=== PATIENT | male | born 1950 | race Caucasian/White ===

== ENCOUNTER → 2017-11-08 | Outpatient (CLI) | payer OTHER ==
--- NOTE | 2017-11-08 11:23 | KCIC ---
MRI of the thoracic spine without contrast 11/08/2017 CLINICAL HISTORY: Mid back pain which radiates down the right arm worsening over last 6 weeks. TECHNIQUE: Unenhanced T1-weighted, T2-weighted and inversion recovery sagittal and T1-weighted and T2-weighted axial images of the thoracic spine were obtained. T2-weighted sagittal images of the cervical, thoracic and lumbar spine were obtained for localization purposes. FINDINGS: Very mild S-shaped curvature of the thoracolumbar spine is seen. Degenerative signal changes are seen involving all of the disks of the thoracic spine. Degenerative signal changes are seen within the marrow surrounding these discs. No area of abnormal signal intensity is seen involving the thoracic spinal cord. At the T1-2 disc space there is a minimal generalized disc bulge. Superimposed on this disc bulge is a right paracentral/lateral focal disc protrusion. This measures 2.5 mm in AP diameter. Degenerative changes are seen involving the facet joints bilaterally. These findings do not result in significant central spinal canal stenosis. Mild right neural foraminal stenosis is seen. The left neural foramen is patent. At the T2-3 disc space there is a minimal generalized disc bulge. Superimposed on this disc bulge is a right paracentral/lateral disc osteophyte complex. This measures 4 mm in AP diameter. Degenerative changes are seen involving the facet joints bilaterally. These findings do not result in significant central spinal canal stenosis. Mild right neural foraminal stenosis is seen. The left neural foramen is patent. At the T3-4, and T4-5 disc spaces there are minimal to mild generalized disc bulges. Degenerative changes are seen involving the facet joints bilaterally. These findings do not result in significant central spinal canal or neural foraminal stenosis. At the T5-6 and T6-7 disc spaces there are mild generalized disc bulges. Superimposed on this disc bulge is a focal central disc protrusions which measures 3 mm in AP diameter. Degenerative changes are seen involving the facet joints bilaterally. These findings result in mild central spinal canal stenosis without evidence of cord impingement. No neural foraminal stenosis is seen. At the T7-8 disc space there is a mild generalized disc bulge. Superimposed on this disc bulge is a left paracentral focal disc osteophyte complex. This measures 4 mm in AP diameter. Degenerative changes are seen involving the facet joints bilaterally. These findings when combined result in mild to moderate left greater than right central spinal canal stenosis without evidence of cord impingement. No neural foraminal stenosis is seen. At the T8-9 disc space there is a minimal generalized disc bulge. Degenerative changes are seen involving the facet joints bilaterally. These findings do not result in significant central spinal canal or neural foraminal stenosis. At the T9-10 disc space there is a mild generalized disc bulge. This is eccentric to the left. Degenerative changes are seen involving the facet joints, right greater than left. These findings when combined do not result in significant central spinal canal stenosis. Mild right greater than left neural foraminal stenosis is seen. At the T10-11 and T11-12 disc spaces there are minimal generalized disc bulges. Degenerative changes are seen involving the facet joints bilaterally. These findings do not result in significant central spinal canal or neural foraminal stenosis. IMPRESSION: Degenerative changes are seen throughout the thoracic disc spaces. These findings result in mild central spinal canal stenosis without evidence of cord impingement at T5-6 and T6-7 and mild to moderate left greater than right central spinal canal stenosis without evidence of cord impingement at T7-8. Mild right neural foraminal stenosis is seen at T1-2 and T2-3. Mild right greater than left neural foraminal stenosis is seen at T9-10. Electronically signed by: Gabriel Heredia MD (11/08/2017 11:19 AM) [id number]
== END | disposition home or self-care (01) ==
LOC: KCIC MRI 10:01
PROVIDERS: ATTEND Nurse Practitioner Family
DX: M47.894 Other spondylosis, thoracic region (principal); M48.04 Spinal stenosis, thoracic region; M51.24 Other intervertebral disc displacement, thoracic region
CPT/HCPCS: 72146

== ENCOUNTER → 2017-11-21 | Outpatient (CLI) | payer OTHER ==
--- NOTE | 2017-11-21 15:41 | KCIC ---
MRI Cervical Spine Without Contrast History: Neck pain, bilateral radiculopathy for 6-8 months Technique: Multiplanar, multi sequential noncontrast MR imaging was performed of the cervical spine. Comparison: None Findings: There is some motion degradation, limits accurate evaluation of the neural foramina especially on the axial images. Cervical cord caliber is within normal limits without significant focal signal abnormality. There is no significant abnormality of the cervical medullary junction. Cervical vertebral body stature and AP alignment are maintained. There is straightening of the cervical spine. There is moderate degenerative disc disease at C5-6. There is likely medial deviation of the carotid arteries in the neck bilaterally poorly evaluated. C2-C3: Neural foramina and spinal canal are overall adequate. There is mild right uncovertebral degenerative change. C3-C4: There is disc osteophyte complex eccentric to the far right lateral recess, minimal narrowing of the far right lateral recess. Central canal is adequate about 11 mm. There is right uncovertebral degenerative change. There is probable moderate narrowing of the right neural foramen, left neural foramen overall adequate. C4-C5: There is bilateral facet hypertrophic change greater on the left. There is negligible disc osteophyte complex. Spinal canal is adequate. There is mild uncovertebral degenerative change greater on the left. Spinal canal is adequate. There is probable fairly severe narrowing of the left neural foramen, probable moderate to severe narrowing on the right. C5-C6: There is minimal disc osteophyte complex and bulge. Central canal is narrowed to about 8 mm also with lateral recess stenosis bilaterally. There is uncovertebral degenerative change greater on the right. There is severe right and probable moderate to severe left neural foramina compromise. There is bilateral facet degenerative change. C6-C7: There is very shallow posterior protrusion. Central canal is adequate 10-11 mm. There is facet degenerative change. There is probable at least moderate right and [id number] left neural foramina compromise. C7-T1: Spinal canal and neural foramina are adequate. Impression: 1. There is mild spinal stenosis C5-C6 also with lateral recess stenosis at this level. 2. There is multilevel facet and uncovertebral degenerative change contributing to neural foramina compromise although somewhat poorly characterized due to motion and signal loss, neural foramina compromise likely more significant bilaterally at C5-C6 and C4-5, to lesser degree on the right at C3-4 and bilaterally at C6-7. 3. There is moderate degenerative disc disease C5-C6, spondylosis greatest at the same level. Electronically signed by: Bhargav Elizondo MD (11/21/2017 3:38 PM) [id number]
== END | disposition home or self-care (01) ==
LOC: KCIC MRI 13:03
PROVIDERS: ATTEND Physical Medicine & Rehabilitation
DX: M48.02 Spinal stenosis, cervical region (principal); M50.322 Other cervical disc degeneration at C5-C6 level; M47.892 Other spondylosis, cervical region; M25.78 Osteophyte, vertebrae
CPT/HCPCS: 72141